=== PATIENT | female | born 1970 | race Caucasian/White ===

== ENCOUNTER → 2019-08-04 10:01 | Outpatient (BNVA) | payer MEDICARE, SELFPAY | PROVIDERS: Family Provider Family Medicine; PCP Family Medicine; Visit Provider Specialist | DX: G35 Multiple sclerosis (principal); F17.210 Nicotine dependence, cigarettes, uncomplicated | CPT/HCPCS: 99213 ==

== ENCOUNTER 2019-12-29 11:12 | Outpatient (CLI) | payer MEDICARE, MEDICAID, SELFPAY ==
--- NOTE | 2019-12-29 11:19 | MM_ITS ---
WS: [id number] BILATERAL SCREENING DIGITAL MAMMOGRAM WITH CAD HISTORY: HX OF ABNORMAL MAMMOGRAM, HISTORY LT BREAST BENIGN BIOPSY COMPARISON: 09/10/2018, 02/09/2015 and 06/02/2016 Bilateral CC and MLO views submitted. Computer aided detection analyzed. Breast composition: The breasts are heterogeneously dense, which may obscure small masses. No suspici ous masses, microcalcifications or architectural distortion. Biopsy clip 9:00 LEFT breast anterior. S cattered calcifications within each breast. No change in the parenchymal pattern. No distortion. MM/[place] [id number] IMPRESSION: BI-RADS: 2-Benign FOLLOW UP: 1 Year Follow-up
== END 2019-12-29 11:13 | disposition home or self-care (01) ==
PROVIDERS: PCP Family Medicine; Visit Provider Nurse Practitioner Family
DX: Z87.898 Personal history of other specified conditions (principal); R92.8 Other abnormal and inconclusive findings on diagnostic imaging of breast
CPT/HCPCS: 77066

== ENCOUNTER 2021-03-16 15:01 | Outpatient (CLI) | payer MEDICARE, MEDICAID, SELFPAY ==
--- NOTE | 2021-03-16 15:11 | MM_ITS ---
WS: [id number] Exam: [id number] Date/Time of Exam: 03/16/2021 3:29 PM Reason For Exam: SCREENING VIEWS: MLO and CC views both breasts. Comparison made with prior exam of 12/29/2019, 09/10/2018 and 06/02/2016. Findings: There was no sign of mass, architectural distortion or suspicious calcification in either breast. He terogeneously [place] MM/[place] [id number] Impression: BI-RADS: 2-Benign FOLLOW-UP: 1 Year Follow-up This mammogram was also analyzed by the Computer Aided Detection System R2 Imag e Instrumentation And Control Technician.
== END 2021-03-16 15:02 | disposition home or self-care (01) ==
LOC: RADSHAW 15:09
PROVIDERS: PCP Family Medicine; Visit Provider Family Medicine
DX: Z12.31 Encounter for screening mammogram for malignant neoplasm of breast (principal)
CPT/HCPCS: 77067

== ENCOUNTER 2022-12-21 07:42 | Outpatient (CLI) | payer MEDICARE, MEDICAID, SELFPAY ==
--- NOTE | 2022-12-21 08:03 | MM_ITS ---
WS: [id number] BILATERAL SCREENING DIGITAL TOMOSYNTHESIS MAMMOGRAM WITH CAD HISTORY: SCREENING COMPARISON: 03/16/2021, 12/29/2019, 09/10/2018 Bilateral CC and MLO views with tomosynthesis and synthetic mammography submitted. Computer aided det ection analyzed. Breast composition: The breasts are heterogeneously dense, which may obscure small masses. No suspici ous masses, microcalcifications or architectural distortion. Scattered calcifications. Irregular asym metry in the medial LEFT breast near 9:00 with a biopsy clip is stable. Scattered asymmetries are sta ble. MM/[place] [id number] IMPRESSION: BI-RADS: 2-Benign FOLLOW UP: 1 Year Follow-up
== END 2022-12-21 07:43 | disposition home or self-care (01) ==
PROVIDERS: PCP Family Medicine; Visit Provider Family Medicine
DX: Z12.31 Encounter for screening mammogram for malignant neoplasm of breast (principal)
CPT/HCPCS: 77063; 77067

== ENCOUNTER → 2025-03-09 08:04 | Outpatient (BNVA) | payer MEDICARE, MEDICAID, SELFPAY | PROVIDERS: PCP Family Medicine; Referring Provider Family Medicine; Visit Provider Specialist | DX: G35 Multiple sclerosis (principal); R26.89 Other abnormalities of gait and mobility; R53.83 Other fatigue | CPT/HCPCS: 36415; 80053; 84443; 85025; 85651; 99205 ==

== ENCOUNTER 2025-03-24 12:15 | Outpatient (RCR) | payer MEDICARE, MEDICAID, SELFPAY | END 2025-04-15 08:34 | disposition home or self-care (01) | LOC: SPT 12:15 | PROVIDERS: PCP Family Medicine; Visit Provider Specialist | DX: G35 Multiple sclerosis (principal); R26.89 Other abnormalities of gait and mobility | CPT/HCPCS: 97110; 97161 ==

== ENCOUNTER 2025-04-01 12:55 | Outpatient (CLI) | payer MEDICARE, SELFPAY ==
--- NOTE | 2025-04-01 13:00 | MR_ITS ---
WS: [id number] MRI BRAIN WITHOUT CONTRAST HISTORY: G35 - Multiple sclerosis COMPARISON: 10/02/2018 TECHNIQUE: Diffusion imaging, multiplanar T1, T2 and FLAIR imaging obtained. No diffusion abnormalities or acute infarct. Very mild cerebral atrophy. Numerous T2 and FLAIR signal hyperintensities. Some of these hyperintensities are perpendicular to the corpus callosum. As compared to 10/02/2018 there has been increase in size and number of the demyelinating lesions in the white matter. New area of demyelination in the RIGHT temporal lobe adjacent to the temporal horn. There are a few new periventricular white matter lesions. Prior ischemic change in the LEFT jayna. Similar to the prior study. No remote large territory infarct. Ventricles and extra-axial spaces are normal. No inferior displacement of cerebellar tonsils. The sella turcica and pituitary gland are unremarkable. Dural venous sinuses and [place] demonstrate no abnormality on this unenhanced studies. Paranasal sinuses: Mild mucoperiosteal thickening in the anterior ethmoid air cells. Mastoid air cells: Normal. Calvarium and scalp: Intact. MR/MR head wo con* [id number] IMPRESSION: 1. Mild progression of T2 and FLAIR signal hyperintensities suggestive of demy elinating disease compared to 2019. No IV contrast was ordered for this examina tion. Cannot evaluate for active lesions. Consider postcontrast evaluation of t he brain to evaluate for active demyelination. 2. Mild cerebral atrophy. 3. Stable slight ischemic change in the LEFT jayna.
--- NOTE | 2025-04-01 13:45 | MR_ITS ---
WS: [email or web address] MRI CERVICAL SPINE with and without contrast HISTORY: R26.89 - Other abnormalities of gait and mobility COMPARISON: 10/02/2018 Technique: Multiplanar, multisequence noncontrast imaging of the cervical spine. Sagittal and axial T1 fat sat sequences post-MultiHance 18 cc IV. Straightening of the normal cervical lordosis with slight reversal at C5-6. Scattered ill-defined areas of increased T2 signal in the cervical cord centered at C4 and C5-6 through C6-7. Mild progression of T2 signal abnormality since 2019. Reidentified is increased T2 signal in the LEFT jayna. On the postcontrast images there is no definite enhancement of the cervical cord lesions. Craniocervical junction, C1 and C2 relationship, odontoid process and soft tissues are normal. C2-C3: Normal. C3-C4: Small central disc protrusion and small foraminal osteophytes, mild LEFT foraminal stenosis. C4-C5: Mild disc bulging with osteophytic ridging. Mild LEFT foraminal stenosis. C5-C6: Diffuse annular disc bulging with a LEFT disc osteophyte complex effacing CSF. Mild central and LEFT foraminal stenosis. C6-C7: Annular disc bulge with central disc protrusion. Small bilateral foraminal disc osteophyte complexes. Very mild central stenosis. C7-T1: Normal. Paraspinal soft tissue are normal. MR/MR cervical spine wo/w [id number] IMPRESSION: 1. Progression of demyelinating lesions in the cervical cord since 10/02/2018. 2. Cord lesions are centered at C4 and C5-6 through C6-7. None of the lesions enhance. No active demyelination. 3. No cord atrophy. 4. LEFT paramedian pontine signal abnormality does not enhance. 5. Mild LEFT foraminal stenosis at C3-4 with a small central disc protrusion. 6. Mild central and LEFT foraminal stenosis at C5-6. Stenosis due to disc oste ophyte disease. 7. Small central disc protrusion at C6-7 with mild central stenosis. 8. Mild LEFT foraminal stenosis at C4-5.
--- NOTE | 2025-04-01 14:30 | MR_ITS ---
WS: [email or web address] MRI THORACIC SPINE with and without contrast HISTORY: Multiple sclerosis exacerbation since August 2024. COMPARISON: None available. TECHNIQUE: Multiplanar sequences are performed in sagittal and axial planes. Sagittal and axial T1 fat sat sequences post-MultiHance 18 cc IV. Very slight increase in thoracic kyphosis. Normal signal in the thoracic cord. No demyelinating plaques, cord atrophy or enlargement is identified. On the postcontrast imaging no areas of abnormal enhancement. T1-2: Normal. T2-3: Normal. T3-4: Normal. T4-5: Normal. T5-6: Normal. T6-7: Small osteophyte projecting upon the posterior thecal sac at the T7 level from facet disease. T7-8: Mild facet joint arthritis. T8-9: Mild facet joint arthritis and foraminal narrowing. T9-10: Small central disc protrusion with moderate ligamentum flavum and facet arthritis. Mild foraminal stenosis. T10-11: Mild annular disc bulging with mild facet arthritis. T11-12: Normal. Paravertebral soft tissues are normal. MR/MR thoracic spine wo/w [id number] IMPRESSION: 1. No demyelinating lesions or abnormal enhancement in the thoracic cord. 2. No cord atrophy or enlargement. 3. No high-grade central or foraminal stenosis.
[2025-04-01] MEDS: gadobenate dimeglumine 20 mL vial 18 ML IV (14:49)
== END 2025-04-01 12:56 | disposition home or self-care (01) ==
PROVIDERS: PCP Family Medicine; Visit Provider Specialist
DX: G35 Multiple sclerosis (principal); R26.89 Other abnormalities of gait and mobility
CPT/HCPCS: 70551; 72156; 72157

== ENCOUNTER → 2025-05-12 12:05 | Outpatient (BNVA) | payer MEDICARE, MEDICAID, SELFPAY | PROVIDERS: PCP Family Medicine; Referring Provider Family Medicine; Visit Provider Specialist | DX: G35.D Multiple sclerosis, unspecified (principal); R26.89 Other abnormalities of gait and mobility; R53.83 Other fatigue; R25.2 Cramp and spasm | CPT/HCPCS: 99215 ==

== ENCOUNTER → 2025-06-25 14:03 | Outpatient (BNVA) | payer MEDICARE, MEDICAID, SELFPAY | PROVIDERS: PCP Family Medicine; Visit Provider Specialist | DX: R25.2 Cramp and spasm (principal); G35.D Multiple sclerosis, unspecified | CPT/HCPCS: 64644; 99213; J9999 ==